=== PATIENT | female | born 1960 | race Caucasian/White ===

== ENCOUNTER → 2018-08-13 | Outpatient (CLI) | payer OTHER ==
--- NOTE | 2018-08-13 17:08 | Diagnostic Imaging Report ---
EXAMINATION: PA and lateral chest at 04:39 p.m. INDICATION: COPD. FINDINGS: There are no prior studies available for comparison. The heart size is within normal limits. The lungs are clear. There is no evidence for failure, pneumonia, or for a pleural effusion to suggest an acute abnormality. There is a soft tissue density in the left suprahilar region. This finding could be related to the pulmonary vessels in this area alone. The possibility that there is a neoplastic mass in this area should also be considered. If previous exams are available, they would be helpful for comparison. If there are no prior studies, then CT of the chest will be recommended for further study. The mediastinum is not widened. The osseous structures are intact. IMPRESSION: 1. There is no evidence for an acute cardiopulmonary abnormality. 2. The soft tissue density in the left suprahilar region is of uncertain etiology. Considerations and recommendations as above. Dictated by: Dictated on workstation # [id number]
[2018-08-13 17:10] LABS: BASOPHILS % (AUTO) 1 % (0-10); EOSINOPHILS # (AUTO) 0.4 10^3/uL (0.0-0.3); EOSINOPHILS % (AUTO) 6 % (0-10); HEMATOCRIT 38 % (35-52); HEMOGLOBIN 12.5 G/DL (11.5-16.0); LYMPHOCYTES # (AUTO) 2.8 X 10^3 (1.0-4.0); LYMPHOCYTES % (AUTO) 38 % (12-44); MEAN CORPUSCULAR HEMOGLOBIN 30 PG (25-34); MEAN CORPUSCULAR HGB CONC 33 G/DL (32-36); MEAN CORPUSCULAR VOLUME 89 FL (80-99); MEAN PLATELET VOLUME 10.4 FL (7.4-10.4); MONOCYTES # (AUTO) 0.7 X 10^3 (0.0-1.0); MONOCYTES % (AUTO) 9 % (0-12); NEUTROPHILS # (AUTO) 3.4 X 10^3 (1.8-7.8); NEUTROPHILS % (AUTO) 47 % (42-75); PLATELET COUNT 281 10^3/uL (130-400); WHITE BLOOD COUNT 7.3 10^3/uL (4.3-11.0)
[2018-08-13 17:36] LABS: ALBUMIN 4.2 GM/DL (3.2-4.5); BILIRUBIN,TOTAL 0.3 MG/DL (0.1-1.0); CALCIUM 9.7 MG/DL (8.5-10.1); CREATININE SERUM 0.96 MG/DL (0.60-1.30); POTASSIUM 3.9 MMOL/L (3.6-5.0); TOTAL PROTEIN 7.2 GM/DL (6.4-8.2)
== END ==
LOC: RAD 16:27
DX: J44.1 Chronic obstructive pulmonary disease with (acute) exacerbation (principal); J98.4 Other disorders of lung
CPT/HCPCS: 36415; 71046; 80053; 85025; 86141

== ENCOUNTER → 2018-08-18 | Outpatient (CLI) | payer OTHER ==
--- NOTE | 2018-08-18 14:19 | Diagnostic Imaging Report ---
PROCEDURE: CT chest without contrast. TECHNIQUE: Multiple contiguous axial images were obtained through the chest without the use of intravenous contrast. INDICATION: Followup chest x-ray. FINDINGS: Heart size is normal. There are few calcified granulomas in the mediastinum and varinder. There are noted discrete pulmonary nodules, masses or infiltrates. There are calcified granulomas in the lungs. There is no pleural or pericardial fluid. No pneumothorax. There is no pathologically enlarged adenopathy in the chest. Thoracic aorta is normal in caliber. The visualized intra-abdominal structures are unremarkable. There are mild degenerative changes in the spine. IMPRESSION: No acute cardiopulmonary abnormality. Mild granulomatous disease as described. Mild degenerative changes in the lower thoracic spine. Dictated by: Dictated on workstation # [id number]
== END ==
LOC: RAD 11:58
DX: J84.10 Pulmonary fibrosis, unspecified (principal); M47.814 Spondylosis without myelopathy or radiculopathy, thoracic region; R91.1 Solitary pulmonary nodule
CPT/HCPCS: 71250